=== PATIENT | female | born 1995 | race Caucasian/White ===

== ENCOUNTER 2018-05-02 14:05 | Emergency (ER) | payer OTHER, SELFPAY ==
[2018-05-02 14:15] VITALS: BP 119/79; PULSE 90; RESP 16; TEMP 37.2; O2SAT 100; BMI 23.3
--- NOTE | 2018-05-02 14:22 | ED.LOWEXIN ---
HPI - Extremity Injury (Lower) <PACO Bergman-BC - Last Filed: 05/02/18 18:31> General Chief Complaint: Extremity Injury, Lower Stated Complaint: R knee pain Time Seen by Provider: 05/02/18 14:14 Source: patient and EMS Mode of arrival: EMS Limitations: no limitations History of Present Illness HPI Narrative: Patient presents with chief complaint of right knee pain. She states she was kicked or hit while playing kickball. She states her pain is across the front of her knee into the inside of her knee. She states she was unable to bear weight after the accident. She denies feelings of instability. She states she has never hurt this knee before. She has applied ice. She was immobilized by EMS. Related Data Allergies Allergy/AdvReac Type Severity Reaction Status Date / Time No Known Drug Allergies Allergy Verified 05/02/18 14:46 Review of Systems <REMEDIOS Bergman - Last Filed: 05/02/18 18:31> Review of Systems GENERAL: Denies chills, fatigue, malaise, fever, sweats. HEENT: Denies sinus pain, ear pain, sore throat, difficulty swallowing, dizziness. RESPIRATORY: Denies dyspnea, cough, wheezing, hemoptysis, sputum. CARDIOVASCULAR: Denies chest pain, palpitations, orthopnea, edema, GASTROINTESTINAL: Denies nausea, vomiting, abdominal pain, diarrhea, constipation, melena. : Denies dysuria, frequency, incontinence, hematuria, urinary retention. MUSCULOSKELETAL: See HPI SKIN: Denies rash, skin lesions, or other NEUROLOGIC: Denies weakness, headache, numbness, change in speech, confusion, seizures, incoordination. PSYCHIATRIC: No concerning psychosocial issues. 12 point review of systems is negative except for those stated above Exam <PACO Bergman-BC - Last Filed: 05/02/18 18:31> Narrative Exam Narrative: GENERAL: This is a well-nourished, well-developed patient, with friends at bedside. HEAD: Atraumatic. Normocephalic. No temporal or scalp tenderness. EYES: Pupils equal round and reactive. Extraocular motions intact. No scleral icterus. No injection or drainage. ENT: Nose without bleeding, purulent drainage or septal hematoma. Throat without erythema, tonsillar hypertrophy or exudate. Uvula midline. Airway patent. NECK: Trachea midline. No JVD or lymphadenopathy. Supple, nontender, no meningeal signs. CARDIOVASCULAR: Regular rate and rhythm without murmurs, gallops, or rubs. RESPIRATORY: Clear to auscultation. Breath sounds equal bilaterally. No wheezes, rales, or rhonchi. GASTROINTESTINAL: Abdomen soft, non-tender, nondistended. No hepato-splenomegaly, or palpable masses. No guarding. EXTREMITIES: Right knee pain to palpation that is generalized. Negative anterior drawer, negative posterior drawer, negative varus stress test, negative valgus stress test right knee.. Negative Meri's test. Pain to palpation distal of right patella. Positive pedal pulses right foot. Patient is able to lift her leg off the stretcher and flex it to 90?. However she has pain after 90? of flexion. She also complains of pain on full extension. BACK: Nontender without deformity or crepitance. No flank tenderness. NEURO: AOx3. SKIN: Healing abrasion noted right knee. No noted ecchymosis or swelling right knee. Initial Vital Signs Initial Vital Signs: Vital Signs Temperature 98.9 F 05/02/18 14:15 Pulse Rate 90 05/02/18 14:15 Respiratory Rate 16 05/02/18 14:15 Blood Pressure 119/79 05/02/18 14:15 Pulse Oximetry 100 05/02/18 14:15 <Yasir Muniz MD - Last Filed: 05/03/18 08:48> Initial Vital Signs Initial Vital Signs: Vital Signs Temperature 98.9 F 05/02/18 14:15 Pulse Rate 90 05/02/18 14:15 Respiratory Rate 16 05/02/18 14:15 Blood Pressure 119/79 05/02/18 14:15 Pulse Oximetry 100 05/02/18 14:15 Course <PACO Bergman-BC - Last Filed: 05/02/18 18:31> Additional Information: The patient presented with chief complaint of right knee pain. She had x-rays taken which came back negative. However given her persistent inability and pain with ambulation, a CT was done per Dr. Muniz to rule out tibial plateau fracture. I checked on her multiple times throughout her emergency department stay. She was given ice as well as pain medication. She no questions or concerns upon discharge. Orders Ordered: Discontinued Medications Acetaminophen (Tylenol) 975 mg PO NOW ONE Stop: 05/02/18 17:26 Last Admin: 05/02/18 18:14 Dose: Not Given Ibuprofen (Advil) 400 mg PO NOW ONE Stop: 05/02/18 14:36 Last Admin: 05/02/18 14:45 Dose: 400 mg Vital Signs - 8 hr 05/02/18 14:15 05/02/18 15:00 05/02/18 18:15 Temperature 98.9 F 99.1 F Pulse Rate 90 82 Respiratory Rate 16 15 Blood Pressure 119/79 115/71 Pulse Oximetry 100 99 <Yasir Muniz MD - Last Filed: 05/03/18 08:48> Orders Ordered: Discontinued Medications Acetaminophen (Tylenol) 975 mg PO NOW ONE Stop: 05/02/18 17:26 Last Admin: 05/02/18 18:14 Dose: Not Given Ibuprofen (Advil) 400 mg PO NOW ONE Stop: 05/02/18 14:36 Last Admin: 05/02/18 14:45 Dose: 400 mg Vital Signs - 8 hr 05/02/18 14:15 05/02/18 15:00 05/02/18 18:15 Temperature 98.9 F 99.1 F Pulse Rate 90 82 Respiratory Rate 16 15 Blood Pressure 119/79 115/71 Pulse Oximetry 100 99 MDM - Extremity Injury (Lower) <REMEDIOS Bergman - Last Filed: 05/02/18 18:31> Imaging Data right knee xray: Radiologist's impression: [address] [address] XRay Report Signed Patient: Shayy Perez MR#: [id number] : 1995 Acct:[id number] Age/Sex: 22 / F Date of Service: 05/02/18 Loc: ED Accession Number: [id number] Procedure: XR knee RT 3V Ordering Provider: Pastora Flores PROCEDURE: XR KNEE RT 3V INDICATIONS: knee pain after kickball injury TECHNIQUE: 3 views of the knee were acquired. COMPARISON: None. FINDINGS: Bones: No fractures or dislocations. No suspicious bony lesions. Soft tissues: No joint effusion. No suspicious soft tissue calcifications. IMPRESSION: No visualized acute fracture or dislocation. However, if clinical concern and/or pain persist, short interval imaging followup in 7-10 days is recommended, as occult injury cannot be definitively excluded. Dictated by: Candice Rosen M.D. on 05/02/2018 at 14:48 Approved by: Candice Rosen M.D. on 05/02/2018 at 14:[address]: Radiologist's impression: [address] [address] [address] Scan Report Signed Patient: Shayy Peerz MR#: [id number] : 1995 Acct:[id number] Age/Sex: 22 / F Date of Service: 05/02/18 Loc: ED Accession Number: [id number] Procedure: CT LE RT wo con Ordering Provider: Pastora Flores PROCEDURE: CT LE RT WO CON INDICATIONS: knee pain, unable to bear weight TECHNIQUE: Noncontrast 1-1.5 mm axial sections acquired from the mid-patella to the proximal tibia, with coronal and sagittal reformats. COMPARISON: [facility], CR, XR KNEE RT 3V, 05/02/2018, 14:05. FINDINGS: Image quality: Excellent. Bones: Femur is intact. No visualized fractures of the fibula. There is approximate 2 mm depression along the medial aspect of both the lateral and medial tibial plateaus adjacent to the tibial spine. It appears symmetrical without distinct fracture line and unlikely represent a fracture. Soft tissues: Mild effusion is present. There is mild appearance of stranding within the peripatellar fat pad as well as a nonspecific appearance of inflammatory change within the region of the ACL/PCL. IMPRESSION: 1. No visualized fracture. 2. Mild effusion. In addition, there is appearance of stranding in the peripatellar fat pad as well as in the region of the ACL/PCL. Ligamentous and/or meniscal injury should be considered. Orthopedic consult and MRI is recommended for followup evaluation. Dictated by: Candice Rosen M.D. on 05/02/2018 at 17:19 MDM Narrative Medical decision making narrative: The patient presents with knee pain. She had a negative x-ray, though had persistent inability to ambulate. She had a CT done to rule out tibial plateau fracture. That came back negative for any obvious fracture. She was able to ambulate with a knee brace and crutches after the CT scan. The she was given a referral to Orthopedics, a knee immobilizer and crutches for comfort. I discussed at length with her rest ice compression elevation as well as [id number] pain meds as necessary. She plans on following up with Orthopedics if needed. Discharge Plan Departure Patient Disposition: Home, Self-Care Clinical Impression: Acute pain of right knee Discharge Date/Time: 05/02/18 18:00 Interventions: ED Discharge Assessment Last Done: 05/02/18 18:15 Instructions: How to Use Crutches, How To Perform RICE (Rest, Ice, Compress, Elevate), DI for Knee Pain Activity Restrictions/Additional Instructions: Your x-ray and CT scan came back with no fracture. I suggest follow up with your primary care physician or Orthopedics. I referred you to [facility]. I have given you information on knee pain, rice, and had use crutches. Please use ice and take [id number] pain medications as needed. Referrals: [facility] [Provider Group] <Yasir Muniz MD - Last Filed: 05/03/18 08:48> Sign Out Provider Sign Out Attestation: The PA/DIRECTOR OF [employer] functioned independently for the care of this pt, I was available, but not asked to participate in care. I am unable to determine appropriateness of management without personally examining the pt.
[2018-05-02] MEDS: IBUPROFEN 400 MG TABLET PO (14:45)
[2018-05-02 15:00] VITALS: TEMP 37.3
--- NOTE | 2018-05-02 15:43 | DI.CT.S_ITS ---
PROCEDURE: CT LE RT WO CON INDICATIONS: knee pain, unable to bear weight TECHNIQUE: Noncontrast 1-1.5 mm axial sections acquired from the mid-patella to the proximal tibia, with coronal and sagittal reformats. COMPARISON: [facility], CR, XR KNEE RT 3V, 05/02/2018, 14:05. FINDINGS: Image quality: Excellent. Bones: Femur is intact. No visualized fractures of the fibula. There is approximate 2 mm depression along the medial aspect of both the lateral and medial tibial plateaus adjacent to the tibial spine. It appears symmetrical without distinct fracture line and unlikely represent a fracture. Soft tissues: Mild effusion is present. There is mild appearance of stranding within the peripatellar fat pad as well as a nonspecific appearance of inflammatory change within the region of the ACL/PCL. IMPRESSION: 1. No visualized fracture. 2. Mild effusion. In addition, there is appearance of stranding in the peripatellar fat pad as well as in the region of the ACL/PCL. Ligamentous and/or meniscal injury should be considered. Orthopedic consult and MRI is recommended for followup evaluation. Dictated by: Candice Rosen M.D. on 05/02/2018 at 17:19 Approved by: Candice Rosen M.D. on 05/02/2018 at 17:31
--- NOTE | 2018-05-02 17:46 | ED_ITS ---
HPI - Extremity Injury (Lower) <PACO Bergman-BC - Last Filed: 05/02/18 18:31> General Chief Complaint: Extremity Injury, Lower Stated Complaint: R knee pain Time Seen by Provider: 05/02/18 14:14 Source: patient and EMS Mode of arrival: EMS Limitations: no limitations History of Present Illness HPI Narrative: Patient presents with chief complaint of right knee pain. She states she was kicked or hit while playing kickball. She states her pain is across the front of her knee into the inside of her knee. She states she was unable to bear weight after the accident. She denies feelings of instability. She states she has never hurt this knee before. She has applied ice. She was immobilized by EMS. Related Data Allergies Allergy/AdvReac Type Severity Reaction Status Date / Time No Known Drug Allergies Allergy Verified 05/02/18 14:46 Review of Systems <REMEDIOS Bergman - Last Filed: 05/02/18 18:31> Review of Systems GENERAL: Denies chills, fatigue, malaise, fever, sweats. HEENT: Denies sinus pain, ear pain, sore throat, difficulty swallowing, dizziness. RESPIRATORY: Denies dyspnea, cough, wheezing, hemoptysis, sputum. CARDIOVASCULAR: Denies chest pain, palpitations, orthopnea, edema, GASTROINTESTINAL: Denies nausea, vomiting, abdominal pain, diarrhea, constipation, melena. : Denies dysuria, frequency, incontinence, hematuria, urinary retention. MUSCULOSKELETAL: See HPI SKIN: Denies rash, skin lesions, or other NEUROLOGIC: Denies weakness, headache, numbness, change in speech, confusion, seizures, incoordination. PSYCHIATRIC: No concerning psychosocial issues. 12 point review of systems is negative except for those stated above Exam <PACO Bergman-BC - Last Filed: 05/02/18 18:31> Narrative Exam Narrative: GENERAL: This is a well-nourished, well-developed patient, with friends at bedside. HEAD: Atraumatic. Normocephalic. No temporal or scalp tenderness. EYES: Pupils equal round and reactive. Extraocular motions intact. No scleral icterus. No injection or drainage. ENT: Nose without bleeding, purulent drainage or septal hematoma. Throat without erythema, tonsillar hypertrophy or exudate. Uvula midline. Airway patent. NECK: Trachea midline. No JVD or lymphadenopathy. Supple, nontender, no meningeal signs. CARDIOVASCULAR: Regular rate and rhythm without murmurs, gallops, or rubs. RESPIRATORY: Clear to auscultation. Breath sounds equal bilaterally. No wheezes , rales, or rhonchi. GASTROINTESTINAL: Abdomen soft, non-tender, nondistended. No hepato-splenomegaly , or palpable masses. No guarding. EXTREMITIES: Right knee pain to palpation that is generalized. Negative anterior drawer, negative posterior drawer, negative varus stress test, negative valgus stress test right knee.. Negative Meri's test. Pain to palpation distal of right patella. Positive pedal pulses right foot. Patient is able to lift her leg off the stretcher and flex it to 90?. However she has pain after 90? of flexion. She also complains of pain on full extension. BACK: Nontender without deformity or crepitance. No flank tenderness. NEURO: AOx3. SKIN: Healing abrasion noted right knee. No noted ecchymosis or swelling right knee. Initial Vital Signs Initial Vital Signs: Vital Signs Temperature 98.9 F 05/02/18 14:15 Pulse Rate 90 05/02/18 14:15 Respiratory Rate 16 05/02/18 14:15 Blood Pressure 119/79 05/02/18 14:15 Pulse Oximetry 100 05/02/18 14:15 <Yasir Muniz MD - Last Filed: 05/03/18 08:48> Initial Vital Signs Initial Vital Signs: Vital Signs Temperature 98.9 F 05/02/18 14:15 Pulse Rate 90 05/02/18 14:15 Respiratory Rate 16 05/02/18 14:15 Blood Pressure 119/79 05/02/18 14:15 Pulse Oximetry 100 05/02/18 14:15 Course <PACO Bergman-BC - Last Filed: 05/02/18 18:31> Additional Information: The patient presented with chief complaint of right knee pain. She had x-rays taken which came back negative. However given her persistent inability and pain with ambulation, a CT was done per Dr. Muniz to rule out tibial plateau fracture. I checked on her multiple times throughout her emergency department stay. She was given ice as well as pain medication. She no questions or concerns upon discharge. Orders Ordered: Discontinued Medications Acetaminophen (Tylenol) 975 mg PO NOW ONE Stop: 05/02/18 17:26 Last Admin: 05/02/18 18:14 Dose: Not Given Ibuprofen (Advil) 400 mg PO NOW ONE Stop: 05/02/18 14:36 Last Admin: 05/02/18 14:45 Dose: 400 mg Vital Signs - 8 hr 05/02/18 14:15 05/02/18 15:00 05/02/18 18:15 Temperature 98.9 F 99.1 F Pulse Rate 90 82 Respiratory Rate 16 15 Blood Pressure 119/79 115/71 Pulse Oximetry 100 99 <Yasir Muniz MD - Last Filed: 05/03/18 08:48> Orders Ordered: Discontinued Medications Acetaminophen (Tylenol) 975 mg PO NOW ONE Stop: 05/02/18 17:26 Last Admin: 05/02/18 18:14 Dose: Not Given Ibuprofen (Advil) 400 mg PO NOW ONE Stop: 05/02/18 14:36 Last Admin: 05/02/18 14:45 Dose: 400 mg Vital Signs - 8 hr 05/02/18 14:15 05/02/18 15:00 05/02/18 18:15 Temperature 98.9 F 99.1 F Pulse Rate 90 82 Respiratory Rate 16 15 Blood Pressure 119/79 115/71 Pulse Oximetry 100 99 MDM - Extremity Injury (Lower) <REMEDIOS Bergman - Last Filed: 05/02/18 18:31> Imaging Data right knee xray: Radiologist's impression: [address] [address] XRay Report Signed Patient: Shayy Perez MR#: [id number] : 1995 Acct:[id number] Age/Sex: 22 / F Date of Service: 05/02/18 Loc: ED Accession Number: [id number] Procedure: XR knee RT 3V Ordering Provider: Pastora Flores PROCEDURE: XR KNEE RT 3V INDICATIONS: knee pain after kickball injury TECHNIQUE: 3 views of the knee were acquired. COMPARISON: None. FINDINGS: Bones: No fractures or dislocations. No suspicious bony lesions. Soft tissues: No joint effusion. No suspicious soft tissue calcifications. IMPRESSION: No visualized acute fracture or dislocation. However, if clinical concern and/or pain persist, short interval imaging followup in 7-10 days is recommended , as occult injury cannot be definitively excluded. Dictated by: Candice Rosen M.D. on 05/02/2018 at 14:48 Approved by: Candice Rosen M.D. on 05/02/2018 at 14:[address]: Radiologist's impression: [address] [address] [address] Scan Report Signed Patient: Shayy Perez MR#: [id number] : 1995 Acct:[id number] Age/Sex: 22 / F Date of Service: 05/02/18 Loc: ED Accession Number: [id number] Procedure: CT LE RT wo con Ordering Provider: Pastora Flores PROCEDURE: CT LE RT WO CON INDICATIONS: knee pain, unable to bear weight TECHNIQUE: Noncontrast 1-1.5 mm axial sections acquired from the mid-patella to the proximal tibia, with coronal and sagittal reformats. COMPARISON: [facility], CR, XR KNEE RT 3V, 05/02/2018, 14:05. FINDINGS: Image quality: Excellent. Bones: Femur is intact. No visualized fractures of the fibula. There is approximate 2 mm depression along the medial aspect of both the lateral and medial tibial plateaus adjacent to the tibial spine. It appears symmetrical without distinct fracture line and unlikely represent a fracture. Soft tissues: Mild effusion is present. There is mild appearance of stranding within the peripatellar fat pad as well as a nonspecific appearance of inflammatory change within the region of the ACL/PCL. IMPRESSION: 1. No visualized fracture. 2. Mild effusion. In addition, there is appearance of stranding in the peripatellar fat pad as well as in the region of the ACL/PCL. Ligamentous and/or meniscal injury should be considered. Orthopedic consult and MRI is recommended for followup evaluation. Dictated by: Candice Rosen M.D. on 05/02/2018 at 17:19 MDM Narrative Medical decision making narrative: The patient presents with knee pain. She had a negative x-ray, though had persistent inability to ambulate. She had a CT done to rule out tibial plateau fracture. That came back negative for any obvious fracture. She was able to ambulate with a knee brace and crutches after the CT scan. The she was given a referral to Orthopedics, a knee immobilizer and crutches for comfort. I discussed at length with her rest ice compression elevation as well as [id number] pain meds as necessary. She plans on following up with Orthopedics if needed. Discharge Plan Departure Patient Disposition: Home, Self-Care Clinical Impression: Acute pain of right knee Discharge Date/Time: 05/02/18 18:00 Interventions: ED Discharge Assessment Last Done: 05/02/18 18:15 Instructions: How to Use Crutches, How To Perform RICE (Rest, Ice, Compress, Elevate), DI for Knee Pain Activity Restrictions/Additional Instructions: Your x-ray and CT scan came back with no fracture. I suggest follow up with your primary care physician or Orthopedics. I referred you to [facility]. I have given you information on knee pain, rice, and had use crutches. Please use ice and take [id number] pain medications as needed. Referrals: [facility] [Provider Group] <Yasir Muniz MD - Last Filed: 05/03/18 08:48> Sign Out Provider Sign Out Attestation: The PA/CORPORATE COUNSELOR functioned independently for the care of this pt, I was available, but not asked to participate in care. I am unable to determine appropriateness of management without personally examining the pt.
[2018-05-02 18:15] VITALS: BP 115/71; PULSE 82; RESP 15; O2SAT 99
== END 2018-05-02 18:00 | disposition home or self-care (01) ==
PROVIDERS: Emergency Provider Nurse Practitioner Family
DX: M25.561 Pain in right knee (principal)
CPT/HCPCS: 29530; 73562; 73700; 81025; 99282; 99283

== ENCOUNTER → 2018-05-25 07:02 | Outpatient (CLI) | payer OTHER, SELFPAY ==
--- NOTE | 2018-05-25 | DI.MRI.S_ITS ---
PROCEDURE: MR KNEE RT WO CON INDICATIONS: PAIN IN KNEE TECHNIQUE: Noncontrast sagittal PD fast spin echo and T2 fast spin echo with fat saturation, sagittal 3-D FLASH with fat saturation; coronal T1 spin echo and PD fast spin echo with fat saturation, and axial PD fast spin echo with fat saturation through the knee. COMPARISON: [facility], CT, CT LE RT WO CON, 05/02/2018, 16:22. FINDINGS: Image quality: Excellent. Menisci: Linear oblique high T2 signal intensity to rest of the posterior horn medial meniscus, demonstrating inferior articular surface extension, indicating oblique tearing. Lateral meniscus is intact. Cruciate ligaments: There is full-thickness tearing of the anterior cruciate ligament. Posterior cruciate ligament is intact. Medial structures: The medial collateral ligament appears intact. The posterior oblique ligament, semimembranosus tendon insertions, oblique popliteal ligament, and meniscocapsular junction appear intact. Visualized portions of the pes anserinus tendons appear normal. No abnormal bursal fluid. Lateral structures: The lateral collateral ligament, long and short heads of the biceps femoris tendon appear intact. The popliteus tendon appears normal; the popliteofibular ligament appears intact. The posterosuperior and anteroinferior popliteomeniscal fascicles appear intact. The arcuate and fabellofibular ligaments appear intact, on either side of the lateral inferior geniculate artery. Iliotibial band appears normal. Anterior structures: The quadriceps and patellar tendons appear intact. Patellar alignment is normal. No femoral trochlear dysplasia or ventral trochlear prominence. No edema in the infrapatellar fat pad. Bones and cartilage: No displaced fracture. There is moderate ill-defined T2 signal elevation within the anterior weightbearing aspect of the lateral femoral condyle, and within the posterior weightbearing aspects of the medial and lateral tibial plateaus. The cartilage of the medial and lateral femorotibial compartments, as well as the patellofemoral compartment, appears normal in thickness. Joint space: There is a small knee joint effusion. No Aguayo's cyst. Normal appearing synovial plicae are incidentally noted. IMPRESSION: 1. Full-thickness ACL tear. 2. Distal femoral and proximal tibial contusions. 3. Posterior horn medial meniscal tear. 4. Small knee joint effusion. Dictated by: Margarito Sánchez M.D. on 05/25/2018 at 9:51 Approved by: Margarito Sánchez M.D. on 05/25/2018 at 9:54
== END ==
PROVIDERS: Visit Provider Registered Nurse Diabetes Educator
DX: S83.511A Sprain of anterior cruciate ligament of right knee, initial encounter (principal); S83.241A Other tear of medial meniscus, current injury, right knee, initial encounter; M25.461 Effusion, right knee
CPT/HCPCS: 73721